=== PATIENT | male | born 1985 | race Caucasian/White ===

== ENCOUNTER 2023-01-06 04:12 | Inpatient (IN) ==
[2023-01-06] MEDS ORDERED: IOPAMIDOL 100 ML BOTTLE IV ONE (04:13)
[2023-01-06] MEDS ORDERED: KETOROLAC 30 MG/ML VIAL IV ONE (04:17)
[2023-01-06] MEDS ORDERED: 0.9 % SODIUM CHLORIDE 1,000 ML IV ONE (04:17)
[2023-01-06 04:28] LABS: POC Calcium, Ionized 1.19 (1.16-1.32); POC Creatinine 1.1 (0.6-1.2); POC Potassium 4.1 (3.3-5.1)
--- NOTE | 2023-01-06 04:33 | Emergency Department Note ---
Abdominal Pain HPI General Chief Complaint: Abdominal Pain Stated Complaint: abd pain Time Seen by Provider: 01/06/23 04:16 Source: patient Mode of arrival: ambulatory Limitations: no limitations History of Present Illness HPI Narrative: Narrative: Patient presents to the ED with complaints of worsening abdominal pain since yesterday afternoon. Pain is rated 6/10 and is in the low left lower quadrant of his abdomen. States the pain is sharp and stabbing. He denies fever, chills, nausea, vomiting, hematemesis, melena, medic easier, diarrhea, dysuria, hematuria, urinary frequency. Patient denies [id number] medication. Patient denies any other alleviating or aggravating factors. Related Data Home Medications Medication Instructions Recorded Confirmed No Known Home Meds 07/16/22 07/25/22 Allergies Allergy/AdvReac Type Severity Reaction Status Date / Time No Known Drug Allergies Allergy Unverified 07/25/22 11:14 Review of Systems ROS ROS Narrative: Narrative: All systems ED: reviewed and negative except as stated. [facility] Narrative Patient History Narrative: Narrative: Medical/Surgical/Family History All Active Problems Diverticulitis (Acute) Sepsis (Acute) Social History Smoking Status: Smokeless tobacco Exam Narrative Narrative: Narrative: General Limitations: no limitations General appearance: Present grimacing; Absent in distress ENT ENT: Present normal oropharynx and mucous membranes moist Respiratory Respiratory: Present normal lung sounds bilaterally; Absent respiratory distress Cardiovascular Cardiovascular: Present normal rhythm and tachycardia Adbominal Abdominal: Present soft, tenderness and normal bowel sounds Expanded Abdominal Abdominal Tenderness: Present LUQ and LLQ Extremities Extremities: Present normal capillary refill Back Back: Absent CVA tenderness (R) or CVA tenderness (L) Neurological Neurological: Present oriented X3 and normal gait Psychiatric Psychiatric: Present normal affect and normal mood Skin Skin: Present warm (WNL) and intact Course Course Course Narrative: Patient was evaluated for abdominal pain. Labs for the patient had leukocytosis. Chemistries were unremarkable. Patient was tachycardic on arrival. EKG was unremarkable. Patient was given IV fluids and IV Toradol for his discomfort. CT abdomen pelvis obtained with image reviewed myself which showed diverticulitis with microperforation with no abscess formation. Patient does meet sepsis criteria with tachycardia, leukocytosis and source of infection. Blood cultures were obtained and patient was given IV Cipro and Flagyl. Patient lactic acid was normal. Case was discussed with hospitalist was agreed to admit the patient. Patient expressed verbal understanding agreement of plan. Consultations Consultation #1: Case discussed with hospitalist, Dr. Collins, who has agreed to admit the patient. Time: 06:25 Vital Signs Vital signs: Vital Signs Temperature 97.8 F 01/06/23 04:13 Pulse Rate 112 H 01/06/23 04:13 Respiratory Rate 16 01/06/23 04:13 Blood Pressure 128/97 01/06/23 04:13 Pulse Oximetry (%) 96 01/06/23 04:13 Oxygen Delivery Method Room Air 01/06/23 04:13 Temperature 97.8 F 01/06/23 04:13 Pulse Rate 104 H 01/06/23 05:14 Respiratory Rate 16 01/06/23 04:13 Blood Pressure 122/93 01/06/23 05:01 Pulse Oximetry (%) 93 01/06/23 05:14 Oxygen Delivery Method Room Air 01/06/23 04:13 MDM MDM Narrative Medical decision making narrative: Narrative: Differential Diagnosis Differential Diagnosis: Diverticulitis, SBO, pancreatitis, appendicitis Medical Records Medical records reviewed: Yes I reviewed the patient's medical records. Lab Data Lab results reviewed: Yes I reviewed the patient's lab results. 01/06/23 04:39 Labs: Lab Results 01/06/23 01/06/23 01/06/23 Range/Units 04:23 04:39 04:39 WBC 17.7 H (4.5-11.0) K/mcL RBC 4.98 (4.63-6.08) M/mcL Hgb 16.2 (13.7-17.5) g/dL Hct 45.7 (40.1-51.0) % POC Hct 50.0 (41-55) MCV 91.8 (80.0-100.0) fL MCH 32.5 (26.0-34.0) pg MCHC 35.4 (31.0-36.0) g/dL RDW 11.8 (11.5-14.5) % Plt Count 333 (140-440) K/mcL MPV 8.5 L (8.8-12.5) fL Immature Gran % (Auto) 0.4 (0.0-0.5) % Neut % (Auto) 72.5 (38.0-78.0) % Lymph % (Auto) 16.5 (15.5-49.0) % [place] % (Auto) 10.0 (1.0-12.0) % Eos % (Auto) 0.3 (0.0-7.0) % Baso % (Auto) 0.3 (0.0-2.0) % Lymph # (Auto) 2.91 (1.50-4.80) K/mcL [place] # (Auto) 1.76 H (0.10-0.90) K/mcL Eos # (Auto) 0.06 (0.00-0.70) K/mcL Baso # (Auto) 0.06 (0.00-0.30) K/mcL Immature Gran # 0.07 H (0.00-0.05) K/mcl Absolute Neutrophils 12.82 H (1.80-8.00) K/mcL POC VBG pH (7.32-7.42) POC VBG pCO2 at Temp (41-51) POC VBG pO2 (25-40) POC VBG HCO3 (24-28) POC VBG Total CO2 (25-29) POC Venous O2 Sat (40-70) POC VBG Base Excess (-2-2) VBG Lactic Acid (0.5-2) POC Sodium 137 (133-145) POC Potassium 4.1 (3.3-5.1) POC Chloride 102 (96-108) POC Total CO2 24.0 (22-30) POC BUN 15 (6-20) POC Creatinine 1.1 (0.6-1.2) POC Glucose 118 H (70-105) POC WB Ioniz Calcium 1.19 (1.16-1.32) Amylase 30 (28-100) U/L Lipase 15 (7-60) U/L // Range/Units 04:41 WBC (4.5-11.0) K/mcL RBC (4.63-6.08) M/mcL Hgb (13.7-17.5) g/dL Hct (40.1-51.0) % POC Hct (41-55) MCV (80.0-100.0) fL MCH (26.0-34.0) pg MCHC (31.0-36.0) g/dL RDW (11.5-14.5) % Plt Count (140-440) K/mcL MPV (8.8-12.5) fL Immature Gran % (Auto) (0.0-0.5) % Neut % (Auto) (38.0-78.0) % Lymph % (Auto) (15.5-49.0) % [place] % (Auto) (1.0-12.0) % Eos % (Auto) (0.0-7.0) % Baso % (Auto) (0.0-2.0) % Lymph # (Auto) (1.50-4.80) K/mcL [place] # (Auto) (0.10-0.90) K/mcL Eos # (Auto) (0.00-0.70) K/mcL Baso # (Auto) (0.00-0.30) K/mcL Immature Gran # (0.00-0.05) K/mcl Absolute Neutrophils (1.80-8.00) K/mcL POC VBG pH 7.45 H (7.32-7.42) POC VBG pCO2 at Temp 34.7 L (41-51) POC VBG pO2 88 H (25-40) POC VBG HCO3 23.9 L (24-28) POC VBG Total CO2 25.0 (25-29) POC Venous O2 Sat 97.0 H (40-70) POC VBG Base Excess 0 (-2-2) VBG Lactic Acid 1.2 (0.5-2) POC Sodium (133-145) POC Potassium (3.3-5.1) POC Chloride (96-108) POC Total CO2 (22-30) POC BUN (6-20) POC Creatinine (0.6-1.2) POC Glucose (70-105) POC WB Ioniz Calcium (1.16-1.32) Amylase (28-100) U/L Lipase (7-60) U/L Radiology Data Radiology results reviewed: Yes I reviewed the patient's radiology results. Radiology results narrative: CT abdomen pelvis obtained with image reviewed myself which showsDiverticulitis with microperforation EKG Data EKG #1: EKG attestation: Yes I reviewed and interpreted this EKG. EKG shows normal: sinus rhythm Rate: tachycardia Rhythm: NSR [place]/QRS: normal Heart block present: None ST segment elevation in: None ST segment depression in: None QTc: normal QRS morphology: Present normal Interpretation: no acute changes Core Measures AMI Core Measures Followed: Yes Discharge Plan Patient/Caregiver Discharge Instructions Pt seen by [facility] [employer]/PA only: No Clinical Impression: Diverticulitis Sepsis Qualifiers: Sepsis type: sepsis due to unspecified organism Sepsis acute organ dysfunction status: without acute organ dysfunction Qualified Code(s): A41.9 - Sepsis, unspecified organism Patient Disposition: Xfer As Outpt/Obs ([facility]) Condition: Good Prescriptions: No Action No Known Home Meds
[2023-01-06 05:01] LABS: Basophils # (Auto) 0.06 K/mcL (0.00-0.30); Basophils % (Auto) 0.3 % (0.0-2.0); Eosinophils # (Auto) 0.06 K/mcL (0.00-0.70); Eosinophils % (Auto) 0.3 % (0.0-7.0); Hematocrit 45.7 % (40.1-51.0); Hemoglobin 16.2 g/dL (13.7-17.5); Lymphocytes # (Auto) 2.91 K/mcL (1.50-4.80); Lymphocytes % (Auto) 16.5 % (15.5-49.0); Mean Cell Volume 91.8 fL (80.0-100.0); Mean Corpuscular HGB Conc 35.4 g/dL (31.0-36.0); Mean Platelet Volume 8.5 fL (8.8-12.5); Monocytes # (Auto) 1.76 K/mcL (0.10-0.90); Neutrophils % (Auto) 72.5 % (38.0-78.0); Platelet Count 333 K/mcL (140-440); RBC 4.98 M/mcL (4.63-6.08); Red Cell Distribution Width 11.8 % (11.5-14.5); WBC 17.7 K/mcL (4.5-11.0)
[2023-01-06 05:16] LABS: Amylase 30 U/L (28-100)
[2023-01-06] MEDS ORDERED: metroNIDAZOLE 500 MG/100 ML BAG IV ONE (05:26)
[2023-01-06] MEDS ORDERED: CIPROFLOXACIN 400 MG/200 ML BAG IV ONE (05:26)
[2023-01-06] MEDS: 0.9 % SODIUM CHLORIDE 1,000 ML IV SCH ×2 (06:06→17:07)
--- NOTE | 2023-01-06 06:37 | Internal Med History&Physical ---
HPI History of Present Illness Patient information: Note initiated : 01/06/23 at 6:34 am Service Date, if different from initiated Date: [] Patient: Kennedy Li 37 y/o M admitted on for abd pain. Chief Complaint: [] History of present illness: Mr. Li is a 37 year old Male with no significant past medical history who developed suprapubic abdominal pain the day prior to admission. The pain worsened and became severe in his left lower quadrant so the patient decided to come to the emergency department. In the emergency department, the patient was noted to be tachycardic and also had leukocytosis. A CT abdomen pelvis with contrast was obtained. At the time of admission, the radiology report is pending however the ED provider, Dr. Bingham, did speak with radiology and said that radiology noted the CT showed acute diverticulitis with microperforation. The patient was given ciprofloxacin IV, metronidazole IV, IV fluids. Hospital medicine was consulted to admit the patient for acute diverticulitis. Review of system was positive for left lower quadrant and suprapubic abdominal tenderness, positive for constipation, positive for flatulence, positive for elevated heart rate. Physical exam Head: Atraumatic, normal inspection. Eyes: normal appearance, no scleral icterus. Neck: full ROM Respiratory: no respiratory distress. Cardiovascular: Regular tachycardia. GI/Abdominal: Tenderness in the left lower quadrant, no guarding, no rebound tenderness Extremities: full range of motion, nontender. Neurological: CN II-XII intact, intact motor, intact sensation. Psychiatric: normal mood. Skin: warm, normal color PFSH PFSH All Active Problems Diverticulitis (Acute) Sepsis (Acute) Social History smoking status: Smokeless tobacco MEDS/ALLERGIES Home Medications and Allergies Home Medications Medication Instructions Recorded Confirmed Type No Known Home Meds 07/16/22 07/25/22 History Allergies Allergy/AdvReac Type Severity Reaction Status Date / Time No Known Drug Allergies Allergy Unverified 07/25/22 11:14 EXAM Constitutional Vitals: Temp Pulse Resp BP Pulse Ox O2 Del Method 97.8 F 90 16 124/87 94 Room Air 01/06/23 04:13 01/06/23 06:31 01/06/23 04:13 01/06/23 05:36 01/06/23 06:31 01/06/23 04:13 DATA Data Completed and Pending Labs: Labs from last 24 hours 01/06/23 01/06/23 01/06/23 04:41 04:39 04:39 WBC 17.7 H RBC 4.98 Hgb 16.2 Hct 45.7 POC Hct MCV 91.8 MCH 32.5 MCHC 35.4 RDW 11.8 Plt Count 333 MPV 8.5 L Immature Gran % (Auto) 0.4 Neut % (Auto) 72.5 Lymph % (Auto) 16.5 [place] % (Auto) 10.0 Eos % (Auto) 0.3 Baso % (Auto) 0.3 Lymph # (Auto) 2.91 [place] # (Auto) 1.76 H Eos # (Auto) 0.06 Baso # (Auto) 0.06 Immature Gran # 0.07 H Absolute Neutrophils 12.82 H POC VBG pH 7.45 H POC VBG pCO2 at Temp 34.7 L POC VBG pO2 88 H POC VBG HCO3 23.9 L POC VBG Total CO2 25.0 POC Venous O2 Sat 97.0 H POC VBG Base Excess 0 VBG Lactic Acid 1.2 POC Sodium POC Potassium POC Chloride POC Total CO2 POC BUN POC Creatinine POC Glucose POC WB Ioniz Calcium Amylase 30 Lipase 15 01/06/23 04:23 WBC RBC Hgb Hct POC Hct 50.0 MCV MCH MCHC RDW Plt Count MPV Immature Gran % (Auto) Neut % (Auto) Lymph % (Auto) [place] % (Auto) Eos % (Auto) Baso % (Auto) Lymph # (Auto) [place] # (Auto) Eos # (Auto) Baso # (Auto) Immature Gran # Absolute Neutrophils POC VBG pH POC VBG pCO2 at Temp POC VBG pO2 POC VBG HCO3 POC VBG Total CO2 POC Venous O2 Sat POC VBG Base Excess VBG Lactic Acid POC Sodium 137 POC Potassium 4.1 POC Chloride 102 POC Total CO2 24.0 POC BUN 15 POC Creatinine 1.1 POC Glucose 118 H POC WB Ioniz Calcium 1.19 Amylase Lipase A/P Narrative A/P Narrative: Assessment: 37 year old male admitted for sepsis secondary to acute sigmoid diverticulitis complicated by microperforation. #Sepsis secondary to complicated diverticulitis diverticulitis #Acute sigmoid diverticulitis complicated by microperforation Plan -Ceftriaxone and IV Metronidazole. -IV fluid. -Analgesics. -Follow blood cultures x2. -Follow pending CT abdomen/pelvis report. -Daily CBC w/ diff and IPP. -Home medication reconciliation. -Clear liquid diet for now. -DVT prophylaxis: Lovenox -Code status: Full -Disposition: Inpatient med/surg now, home when stable. Outpatient colonoscopy if not recently performed. Time Spent With Patient Time: Total time spent is greater than 50% in coordination of care (as documented) at patient's floor/unit and/or counseling patient:
[2023-01-06] MEDS ORDERED: ONDANSETRON 4 MG/2 ML VIAL IV PRN (08:52)
[2023-01-06] MEDS ORDERED: SENNOSIDES 1 TABLET PO PRN (08:52)
[2023-01-06] MEDS ORDERED: HYDROcodone/APAP 5/325MG TABLET PO PRN (08:52)
[2023-01-06] MEDS ORDERED: ACETAMINOPHEN 325 MG TABLET PO PRN (08:52)
[2023-01-06] MEDS ORDERED: KETOROLAC 30 MG/ML VIAL IV PRN (08:52)
--- NOTE | 2023-01-06 09:33 | EKG ---
[facility] Test Date: 2023-01-06 Pat Name: Kennedy Li Department: ED Room: Gender: Male Operator: SE : 1985 Requested By: Zachery Sinclair Order Number: [id number] Reading MD: Addison Gallegos Measurements Intervals [place] Rate: 114 P: 33 ID: [id number] QRS: 11 QRSD: 84 T: 45 QT: 324 QTc: 451 Interpretive Statements Sinus tachycardia Multiple ventricular premature complexes Borderline T wave abnormalities Electronically Signed On 01-06-2023 9:33:20 PST by Addison Gallegos /store/[email or web address]/[id number]
--- NOTE | 2023-01-06 10:06 | Cat Scan Report ---
CLINICAL INFORMATION: Left lower quadrant pain COMPARISON: None. TECHNIQUE: Following enteric contrast, 80 cc of Isovue-370 were injected intravenously, and 60 seconds later, 0.625 mm helical slices were obtained from the mid heart through the subtrochanteric regions. Following reconstruction, 2.5 mm sagittal, coronal and axial reformatted images were processed and reviewed at bone, lung and soft tissue windows. Five minutes later, 0.625 mm helical slices were obtained from the mid heart through the kidneys and viewed at soft tissue windows.The exam was performed using radiation dose optimization techniques including, but not limited to, automated exposure control, adjustment of the mA and/or kV according to patient size and use of iterative reconstruction technique. FINDINGS: The lung bases are clear. No effusions. The visualized heart is grossly normal. Mild wall thickening of distal esophagus likely related complex facet disease or other infiltrative pathology Abdominal images show the gallbladder and bile ducts, liver, both kidneys, adrenal glands, spleen, pancreas and aorta, including aortic branches, are normal in size, configuration and attenuation without focal lesion. There is no adenopathy.. Pelvic images show normal urinary bladder, prostate and seminal vesicles. There is a 7 cm segment of proximal sigmoid colon which demonstrates moderate diverticulitis. In this region, there is moderate wall thickening inflamed, diverticuli and phlegmon in the perisigmoid fat. Small amount free fluid is noted. The remainder of the large bowel, inferior pericecal appendix, small bowel and stomach are grossly normal. Bone windows show no osseous abnormality IMPRESSION: Moderate sigmoid diverticulitis-proximal sigmoid colon. No abscess Mild wall thickening the distal esophagus which likely reflects peptic disease. Interpreted and Authenticated by: Roni Bennett 01/06/23
[2023-01-06] MEDS: cefTRIAXone 2 GM in DEXTROSE 5% IN WATER 50 ML IV SCH (11:46)
[2023-01-06] MEDS ORDERED: NICOTINE POLACRILEX 2 MG GUM CHEW/PARK PRN (11:49)
[2023-01-06] MEDS: ENOXAPARIN 40 MG/0.4 ML SYRINGE SQ SCH (12:20)
[2023-01-06] MEDS: metroNIDAZOLE 500 MG/100 ML BAG IV SCH ×2 (12:20→22:16)
[2023-01-06] MEDS: 0.9 % SODIUM CHLORIDE 10 ML SYRINGE IV SCH ×2 (13:40→22:17)
[2023-01-07] MEDS: 0.9 % SODIUM CHLORIDE 1,000 ML IV SCH (04:12)
[2023-01-07] MEDS: 0.9 % SODIUM CHLORIDE 10 ML SYRINGE IV SCH (05:10)
[2023-01-07] MEDS: metroNIDAZOLE 500 MG/100 ML BAG IV SCH (05:10)
[2023-01-07 07:49] LABS: Basophils # (Auto) 0.03 K/mcL (0.00-0.30); Basophils % (Auto) 0.4 % (0.0-2.0); Eosinophils # (Auto) 0.28 K/mcL (0.00-0.70); Eosinophils % (Auto) 3.7 % (0.0-7.0); Hematocrit 41.3 % (40.1-51.0); Hemoglobin 14.2 g/dL (13.7-17.5); Lymphocytes # (Auto) 2.01 K/mcL (1.50-4.80); Lymphocytes % (Auto) 26.6 % (15.5-49.0); Mean Cell Volume 94.5 fL (80.0-100.0); Mean Corpuscular HGB Conc 34.4 g/dL (31.0-36.0); Mean Platelet Volume 8.5 fL (8.8-12.5); Monocytes # (Auto) 0.76 K/mcL (0.10-0.90); Neutrophils % (Auto) 58.5 % (38.0-78.0); Platelet Count 280 K/mcL (140-440); RBC 4.37 M/mcL (4.63-6.08); Red Cell Distribution Width 11.7 % (11.5-14.5); WBC 7.6 K/mcL (4.5-11.0)
[2023-01-07 08:06] LABS: ALT/SGPT 15 U/L (<40); AST/SGOT 15 U/L (<40); Albumin 3.6 gm/dL (3.2-5.2); Albumin/Globulin Ratio 1.4 (1.0-2.3); Alkaline Phosphatase 73 U/L (39-117); Bilirubin,Direct < 0.2 mg/dL (0-0.3); Bilirubin,Total 0.8 mg/dL (0.1-1.0); Blood Urea Nitrogen 10 mg/dL (6-20); Calcium 8.6 mg/dL (8.6-10.4); Carbon Dioxide 27 mmol/L (22-30); Chloride 103 mmol/L (96-108); Globulin 2.5 gm/dL (2.2-3.7); Glomerular Filtration Rate 97; Glucose 89 mg/dL (70-105); Lactate Dehydrogenase 155 U/L (135-225); Phosphorous 2.6 mg/dL (2.5-4.5); Triglycerides 86 mg/dL (<150); Uric Acid 6.3 mg/dL (2.5-8.0)
[2023-01-07] MEDS: cefTRIAXone 2 GM in DEXTROSE 5% IN WATER 50 ML IV SCH (09:04)
[2023-01-07] MEDS: ENOXAPARIN 40 MG/0.4 ML SYRINGE SQ SCH (09:04)
--- NOTE | 2023-01-07 09:22 | Discharge Summary ---
Discharge Provider Provider IMPORTANT FOLLOW-UP INFORMATION FOR PCP: Patient information: Note initiated : 01/07/23 at 9:20 am Service Date, if different from initiated Date: [] Patient: Kennedy Li 37 y/o M admitted on 01/06/23 for abd pain. Chief Complaint: [] Date of admission: 01/06/23 07:37 Discharge date: 01/07/23 Consults: 01/06/23 Consult to Physician [CONS] Stat Comment: Consulting Provider: Jimmie Collins Reason For Exam: Physician to Consult COURSE Hospital Course Hospital course: Mr. Li is a 37 year old Male with no significant past medical history who developed suprapubic abdominal pain the day prior to admission. The pain worsened and became severe in his left lower quadrant so the patient decided to come to the emergency department. In the emergency department, the patient was noted to be tachycardic and also had leukocytosis. A CT abdomen pelvis with contrast was obtained. At the time of admission, the radiology report is pending however the ED provider, Dr. Bingham, did speak with radiology and said that radiology noted the CT showed acute diverticulitis with microperforation. The patient was given ciprofloxacin IV, metronidazole IV, IV fluids. Hospital medicine was consulted to admit the patient for acute diverticulitis. 3/8 Vital stable overnight, the patient's abdominal tenderness has significantly improved. He did have a bowel movement earlier. Tolerating liquid diet. Advance to GI soft transitional diet. Plan is to discharge home today, complete approximately 5 days of antibiotic treatment with Augmentin. Referral placed to gastroenterology to consider screening colonoscopy following an episode of acute diverticulitis. The patient says that his family history is notable for his father having had multiple colonic polyps removed and prostate cancer. Physical exam Head: Atraumatic, normal inspection. Eyes: normal appearance, no scleral icterus. Neck: full ROM Respiratory: no respiratory distress. Cardiovascular: Regular rate and rhythm. GI/Abdominal: Resolved left lower quadrant tenderness. Extremities: full range of motion, nontender. Neurological: CN II-XII intact, intact motor, intact sensation. Psychiatric: normal mood. Skin: warm, normal color Discharge diagnosis: Acute sigmoid diverticulitis Time Spent with Patient Time attestation: Total time spent providing and/or coordinating discharge services: Time spent: Less than 30 minutes EXAM Constitutional Vitals: Temp Pulse Resp BP Pulse Ox O2 Del Method 97.2 F 92 H 20 129/72 99 Room Air 01/07/23 07:52 01/07/23 07:52 01/07/23 07:52 01/07/23 07:52 01/07/23 07:52 01/07/23 07:52 Discharge Data Data Completed and Pending Labs on day of discharge: Labs from last 24 hours 01/07/23 01/07/23 05:44 05:44 WBC 7.6 RBC 4.37 L Hgb 14.2 Hct 41.3 MCV 94.5 MCH 32.5 MCHC 34.4 RDW 11.7 Plt Count 280 MPV 8.5 L Immature Gran % (Auto) 0.8 H Neut % (Auto) 58.5 Lymph % (Auto) 26.6 [place] % (Auto) 10.0 Eos % (Auto) 3.7 Baso % (Auto) 0.4 Lymph # (Auto) 2.01 [place] # (Auto) 0.76 Eos # (Auto) 0.28 Baso # (Auto) 0.03 Immature Gran # 0.06 H Absolute Neutrophils 4.43 Sodium 136 Potassium 4.1 Chloride 103 Carbon Dioxide 27 Anion Gap 6.0 L BUN 10 Creatinine 1.0 GFR Calculation 97 Glucose 89 Uric Acid 6.3 Calcium 8.6 Phosphorus 2.6 Magnesium 1.9 Total Bilirubin 0.8 Direct Bilirubin < 0.2 GGT 18 AST 15 ALT 15 Alkaline Phosphatase 73 Lactate Dehydrogenase 155 Total Protein 6.1 Albumin 3.6 Globulin 2.5 Albumin/Globulin Ratio 1.4 Triglycerides 86 Preliminary micro results at discharge 01/06/23 05:45 Blood Culture - Preliminary Blood 01/06/23 05:45 Blood Culture - Preliminary Blood Discharge Plan Patient/Caregiver Discharge Instructions Activity: increase activity as tolerated Diet: Low Fiber Prescriptions: New amoxicillin-pot clavulanate 875-125 mg tablet 1 tab PO BID 4 Days Qty: 8 0RF Follow Up Plan Follow up with: Nick Moffett MD [Physician] - (Consideration of screening colonoscopy after episode of acute diverticulitis.) Patient Disposition: Home, Self-Care Prognosis: Good Overall status at discharge: patient is progressing back to baseline Discharge Orders: Discharge Order (Routine); Ordered 01/07/23 Ordered By: Jimmie Collins QUALITY VTE Deep Vein Thrombosis/Pulmonary Embolism Present on Admission: No
== END 2023-01-07 12:25 | disposition home or self-care (01) | DRG 872 ==
LOC: ED 04:12 → MEDSUR 07:37
PROVIDERS: ADMIT Internal Medicine; ATTEND Internal Medicine